=== PATIENT | male | born 1990 | race Caucasian/White ===

== ENCOUNTER 2018-02-02 15:37 | Emergency (ER) | payer BC ==
[~2018-02-02] VITALS: Ht 185.4 cm; Wt 107.1 kg
[~2018-02-02 15:37] MED LIST: CEFDINIR300 MG PO; MOTRIN800 MG PO
[2018-02-02 16:09] LABS: HEMATOCRIT 38.1 % (38.0-50.0); HEMOGLOBIN 14.2 G/DL (12.5-16.6); MCHC 37.3 G/DL (30.0-36.0); MCV 85.8 FL (86-99); PLATELET COUNT 178 K/uL (156-360); RBC DIS.WIDTH-CV 11.9 % (11.8-14.6); RBC DIS.WIDTH-SD 37.3 % (39-53); RED BLOOD COUNT 4.44 M/uL (4.00-5.50); WHITE BLOOD COUNT 7.3 K/uL (4.1-10.2)
[2018-02-02 16:19] LABS: ALBUMIN 4.4 g/dL (3.2-4.8); CHLORIDE 105 mEq/L (99-109)
[2018-02-02 16:20] LABS: POTASSIUM 3.7 mEq/L (3.7-5.4); SODIUM 138 mEq/L (136-147)
[2018-02-02 16:22] LABS: GLUCOSE 97 mg/dL (70-99); TOTAL PROTEIN 7.2 g/dL (6.4-8.3)
[2018-02-02 16:24] LABS: TOTAL BILIRUBIN 0.9 mg/dL (0.0-1.0)
[2018-02-02 16:25] LABS: ALKALINE PHOSPHATASE 50 IU/L (3-129); CREATININE 1.1 mg/dL (0.6-1.3); GFR ESTIMATE (CALCULATED) > 59 mL/min/ (58.99-99999)
[2018-02-02 16:27] LABS: AST (GOT) 17 IU/L (2-34); UREA NITROGEN (BUN) 17 mg/dL (9-23)
[2018-02-02 16:28] LABS: ALT (GPT) 29 IU/L (3-49)
[2018-02-02 16:49] LABS: LIPASE 18 U/L (1.0-51.0)
[2018-02-02 17:40] LABS: APPEARANCE CLEAR ((CLEAR)); BILIRUBIN NEGATIVE; BLOOD NEGATIVE; COLOR STRAW ((YELLOW)); GLUCOSE (STRIP) NEGATIVE; KETONES NEGATIVE; LEUKOCYTES NEGATIVE; NITRITE NEGATIVE; PROTEIN (STRIP) NEGATIVE; SPECIFIC GRAVITY 1.009 (1.000-1.030); UCUL ADDED? NO; UROBILINOGEN 0.2 MG/DL (0.2-1.0)
[2018-02-02] MEDS ORDERED: ZANTAC150 MG PO (18:53)
[2018-02-02 19:25] VITALS: BP 116/52
== END 2018-02-02 19:32 | disposition home or self-care (01) ==
LOC: EME 15:37
DX: R10.13 Epigastric pain (principal); K58.9 Irritable bowel syndrome, unspecified; Z88.0 Allergy status to penicillin
CPT/HCPCS: 76705; 80053; 81003; 83690; 83735; 85027; 99281; 99285